=== PATIENT | female | born 1950 | race Caucasian/White ===

== ENCOUNTER 2019-04-09 05:02 | Day surgery (SDC) | payer OTHER ==
[~2019-04-09] VITALS: Ht 154.9 cm; Wt 79.1 kg
[~2019-04-09 05:02] MED LIST: BUDE10.2 IH; HYDR-1475 PO; IPRA3AMP24 NEB; LOSA-88 PO; MONT10TA21 PO
[2019-04-09] MEDS ORDERED: RINGERS SOLUTION,LACTATED 500 ML IV ONE ×2 (05:06→05:30)
[2019-04-09] MEDS ORDERED: TROPICAMIDE 1% 2 ML OPHTHALMIC SOLUTION ONE (05:07)
[2019-04-09] MEDS ORDERED: CIPROFLOXACIN HCL 0.3% 2.5 ML OPHTHALMIC SOLUTION ONE (05:07)
[2019-04-09] MEDS ORDERED: TETRACAINE HCL/PF 0.5% 4 ML OPHTHALMIC SOLUTION ONE (05:07)
[2019-04-09] MEDS ORDERED: FLURBIPROFEN SODIUM 0.03% 2.5 ML OPHTHALMIC SOLUTION ONE (05:07)
[2019-04-09] MEDS ORDERED: CYCLOPENTOLATE HCL 1% 2 ML OPHTHALMIC SOLUTION ONE (05:07)
[2019-04-09] MEDS: FLURBIPROFEN SODIUM 0.03% 2.5 ML OPHTHALMIC SOLUTION OS SCH ×3 (05:55→06:08)
[2019-04-09] MEDS: CYCLOPENTOLATE HCL 1% 2 ML OPHTHALMIC SOLUTION OS SCH ×3 (05:55→06:08)
[2019-04-09] MEDS: TROPICAMIDE 1% 2 ML OPHTHALMIC SOLUTION OS SCH ×3 (05:55→06:08)
[2019-04-09] MEDS: CIPROFLOXACIN HCL 0.3% 2.5 ML OPHTHALMIC SOLUTION OS SCH ×3 (05:55→06:08)
[2019-04-09] MEDS ORDERED: TETRACAINE HCL/PF 0.5% 4 ML OPHTHALMIC SOLUTION OS ONE (06:30)
[2019-04-09] MEDS ORDERED: MIDAZOLAM HCL 2 MG/2 ML VIAL IVP ONE (12:00)
[2019-04-09] MEDS ORDERED: FentaNYL CITRATE-PF 100 MCG/2 ML VIAL IVP ONE (12:00)
== END 2019-04-09 08:20 | disposition home or self-care (01) ==
LOC: SURGERY 05:02
PROVIDERS: ATTEND Ophthalmology
DX: H25.13 Age-related nuclear cataract, bilateral (principal); I10 Essential (primary) hypertension; Z86.711 Personal history of pulmonary embolism; Z87.01 Personal history of pneumonia (recurrent); Z79.899 Other long term (current) drug therapy
CPT/HCPCS: 66984; J2250; J3010; J7120; V2632

== ENCOUNTER 2019-07-23 04:25 | Day surgery (SDC) | payer OTHER ==
[~2019-07-23] VITALS: Ht 160 cm; Wt 79.5 kg
[~2019-07-23 04:25] MED LIST changes: -BUDE10.2 IH; -IPRA3AMP24 NEB; -LOSA-88 PO; +LOSA50TA37 PO
[2019-07-23] MEDS ORDERED: HYALURONATE SODIUM 12 MG/ML 0.8 ML SYRINGE IO ONE ×2 (04:26→17:04)
[2019-07-23] MEDS ORDERED: EPINEPHrine 1:1,000 [1 MG/ML] AMP IM ONE (04:26)
[2019-07-23] MEDS ORDERED: BALANCED SALT 15 ML OPHTHALMIC IRRIG.SOLN OU ONE (04:26)
[2019-07-23] MEDS ORDERED: LIDOCAINE/PF 1% 2 ML VIAL IM ONE (04:26)
[2019-07-23] MEDS ORDERED: FentaNYL CITRATE-PF 100 MCG/2 ML VIAL IVP ONE (04:26)
[2019-07-23] MEDS ORDERED: NEOMYCIN/POLYMYXIN B/DEXAMETH 3.5 GM OPHTHALMIC OINTMENT OU ONE (04:26)
[2019-07-23] MEDS ORDERED: POVIDONE-IODINE 10% 15 ML SOLUTION UD TP ONE (04:26)
[2019-07-23] MEDS ORDERED: MIDAZOLAM HCL 2 MG/2 ML VIAL IVP ONE (04:26)
[2019-07-23] MEDS ORDERED: RINGERS SOLUTION,LACTATED 500 ML IV ONE ×2 (04:29→05:00)
[2019-07-23] MEDS ORDERED: TROPICAMIDE 1% 2 ML OPHTHALMIC SOLUTION ONE (04:32)
[2019-07-23] MEDS ORDERED: CIPROFLOXACIN HCL 0.3% 2.5 ML OPHTHALMIC SOLUTION ONE (04:32)
[2019-07-23] MEDS ORDERED: FLURBIPROFEN SODIUM 0.03% 2.5 ML OPHTHALMIC SOLUTION ONE (04:32)
[2019-07-23] MEDS ORDERED: CYCLOPENTOLATE HCL 1% 2 ML OPHTHALMIC SOLUTION ONE (04:32)
[2019-07-23] MEDS ORDERED: TETRACAINE HCL/PF 0.5% 4 ML OPHTHALMIC SOLUTION ONE (04:32)
[2019-07-23] MEDS: CYCLOPENTOLATE HCL 1% 2 ML OPHTHALMIC SOLUTION OD SCH ×3 (05:02→05:14)
[2019-07-23] MEDS: FLURBIPROFEN SODIUM 0.03% 2.5 ML OPHTHALMIC SOLUTION OD SCH ×3 (05:02→05:13)
[2019-07-23] MEDS: CIPROFLOXACIN HCL 0.3% 2.5 ML OPHTHALMIC SOLUTION OD SCH ×3 (05:02→05:14)
[2019-07-23] MEDS: TROPICAMIDE 1% 2 ML OPHTHALMIC SOLUTION OD SCH ×3 (05:02→05:14)
[2019-07-23] MEDS ORDERED: PrednisoLONE ACETATE 1% 5 ML OPHTHALMIC SUSPENSION ONE ×2 (05:46→17:04)
[2019-07-23] MEDS ORDERED: TETRACAINE HCL/PF 0.5% 4 ML OPHTHALMIC SOLUTION OD ONE (07:00)
[2019-07-23] MEDS ORDERED: POVIDONE-IODINE 10% 15 ML SOLUTION UD ONE (17:04)
[2019-07-23] MEDS ORDERED: BALANCED SALT 15 ML OPHTHALMIC IRRIG.SOLN ONE (17:04)
[2019-07-23] MEDS ORDERED: LIDOCAINE 1% 20 ML VIAL *UNAVILABLE ONE (17:04)
[2019-07-23] MEDS ORDERED: EPINEPHrine 1:1,000 [1 MG/ML] AMP ONE (17:04)
[2019-07-23] MEDS ORDERED: NEOMYCIN/POLYMYXIN B/DEXAMETH 3.5 GM OPHTHALMIC OINTMENT ONE (17:04)
== END 2019-07-23 07:30 | disposition home or self-care (01) ==
LOC: SURGERY 04:25
PROVIDERS: ATTEND Ophthalmology
DX: H25.11 Age-related nuclear cataract, right eye (principal); Z79.899 Other long term (current) drug therapy; J44.9 Chronic obstructive pulmonary disease, unspecified; I10 Essential (primary) hypertension; Z87.891 Personal history of nicotine dependence; Z98.890 Other specified postprocedural states; Z11.59 Encounter for screening for other viral diseases
CPT/HCPCS: 66984; 87635; 93005; J0171; J2250; J3010; J3490 ×3; J7120; V2632